=== PATIENT | male | born 1985 | race African-American/Black ===

== ENCOUNTER 2023-03-29 14:53 | Emergency (ER) | payer SELFPAY ==
[~2023-03-29] VITALS: Ht 180.3 cm; Wt 80.6 kg
[2023-03-29 15:02] VITALS: O2SAT 99
[2023-03-29 17:32] VITALS: BP 101/64; PULSE 65; RESP 20; TEMP 98.7
== END 2023-03-29 17:33 | disposition home or self-care (01) ==
LOC: ER 15:08
DX: B34.9 Viral infection, unspecified (principal)
CPT/HCPCS: 99281